=== PATIENT | female | born 1955 | race Caucasian/White ===

== ENCOUNTER 2022-06-11 19:38 | Outpatient (CLI) | payer MEDICARE, BC | END 2022-06-11 23:59 | disposition critical access hospital (66) | LOC: EMS 19:38 | DX: R55 Syncope and collapse (principal); R56.9 Unspecified convulsions; R11.2 Nausea with vomiting, unspecified | CPT/HCPCS: A0425; A0427 ==

== ENCOUNTER 2022-06-11 20:11 | Emergency (ER) | payer MEDICARE, BC ==
--- NOTE | 2022-06-11 20:12 | ED Physician Documentation ---
History of Present Illness - Stated complaint Stated Complaint: BRAYDON GROVER
--- NOTE | 2022-06-11 20:25 | ED Physician Documentation ---
PD HPI SYNCOPE - Stated complaint Stated Complaint: POSS SZ - Chief complaint Chief Complaint: Neuro - History obtained from History obtained from: Patient, EMS - Additional information Additional information: HPI is predominantly from patient with some contribution from EMS. Patient is brought in by ambulance for near syncope. 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 This evening, approximately 1 hour [employer], family member was just completing dressing change of the LUE surgical site when patient had sensation of feeling flushed, lightheaded. She was seated at the time, but the symptoms persisted and thus she felt she might feel better if she went outside. She stood up and walked outside and sat down in a chair. The next thing she recalls is that family including her were attending to her on the ground. She says she does not recall her family coming to help her. She was told by family that she was still seated and was not responding, and was exhibiting generalized twitching of her body.Patient was told by family that they then laid her down on the ground, and within 1 to 2 minutes, patient had completely returned to her baseline mental status which is awake, alert, oriented x3.EMS says that family relays that the twitching and unresponsiveness lasted approximately 30 to 60 seconds. Vital signs were normal for EMS on their arrival, throughout transfer to ER, and, on arrival, patient tells me that she feels well (currently asymptomatic on presentation to the ED). She was given 4 mg of Zofran IV by EMS for nausea. Shortly after patient had r eturned to her baseline level of consciousness, while she was on the ground, patient had onset of nausea with a single episode of emesis. Review of Systems Cardiac: reports: Reviewed and negative Respiratory: reports: Reviewed and negative GI: reports: Nausea, Vomiting (resolved with IV zofran (given by EMS)). denies: Abdominal Pain : denies: Incontinent PD PAST MEDICAL HISTORY - Past Medical History Past Medical History: Yes Derm: Other (carcinoma) - Allergies Allergies/Adverse Reactions: Allergies Allergy/AdvReac Type Severity Reaction Status Date / Time Penicillins Allergy Unknown Verified 06/11/22 20:26 - Living Situation Living Situation: reports: With family Living Arrangement: reports: At home PD ED PE NORMAL - Vitals Vital signs reviewed: Yes - General General: Alert and oriented X 3, No acute distress, Well developed/nourished - HEENT HEENT: Atraumatic, PERRL, EOMI, Moist mucous membranes - Neck Neck: Supple, no meningeal sign, No bony TTP - Cardiac Cardiac: RRR, No murmur, No gallop, No rub - Respiratory Respiratory: No respiratory distress, Clear bilaterally - Abdomen Abdomen: Soft, Non tender - Derm Derm: Normal color, Warm and dry - Neuro Neuro: Alert and oriented X 3, 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 Relevant findings are: Rate: Rate (enter#) (58) Rhythm: NSR [place]: Normal Intervals: Normal [place] QRS: Normal Ischemia: Normal ST segments - Labs Labs: Laboratory Tests 06/11/22 06/11/22 06/11/22 20:18 20:18 20:18 WBC 12.5 H RBC 4.26 Hgb 13.3 Hct 41.2 MCV 96.7 MCH 31.2 H MCHC 32.3 RDW 13.1 Plt Count 295 MPV 9.2 Neut # (Auto) 8.9 H Lymph # (Auto) 2.5 [place] # (Auto) 0.8 Eos # (Auto) 0.2 Baso # (Auto) 0.1 Absolute Nucleated RBC 0.00 Nucleated RBC % 0.0 Sodium 142 Potassium 3.7 Chloride 108 Carbon Dioxide 26 Anion Gap 8.0 BUN 13 Creatinine 0.8 Estimated GFR (MDRD) 72 L Glucose 109 H Calcium 8.9 Total Bilirubin 0.4 AST 18 ALT 15 Alkaline Phosphatase 61 Troponin I High Sens 6.3 Total Protein 6.5 L Albumin 3.6 Globulin 2.9 Albumin/Globulin Ratio 1.2 Lipase 39 - Rads (name of study) chest xray Relevant Findings:: Prelim report reviewed, EMP independent interpretation of test (I reviewed these images and my interpretation is no acute abnormality including no evidence of pneumonia, pneumothorax, cardiomegaly), See rad report PD Medical Decision Making - ED course Complexity details: reviewed results, re-evaluated patient, considered differential, d/w patient ED course: Syncopal episode at home, likely vasovagal given situation at time of event: patient was having LUE dressing changed by family and she says she was feeling uneasy thinking about the surgical site and the dressing change. She then describes typical hypotensive symptoms (see HPI), and family's description also is c/w syncope caused by hypotension, possibly some low-flow/anoxic seizure-like activity in the description. She rapidly returned to baseline and is asymptomatic during ED stay. No concerning/diagnostic findings on blood tests (normal hs-cTn, mildly elevated WBC). Normal EKG and CXR. She is again asymptomatic on reevaluation. Results d/w patient, suspected diagnosis discussed (vasovagal syncope, discussed using layperson terms), return precautions discussed Departure - Departure Disposition: 01 Home, Self Care Clinical Impression: Near syncope Condition: Good Instructions: ED Near Syncope Unkn Comments: There were no concerning or diagnostic findings on tonight's tests. As we discussed, I strongly suspect that you had a transient drop in your blood pressure, and inadequate blood flow to the brain from low blood pressure can cause a loss of consciousness as well as seizure like activity. Your blood pressures have been normal in the emergency department, so despite my suspicion, this is a possible explanation for your symptoms. At this time, there is no evidence of a dangerous condition, and further testing in the ER and/or in the hospital is not indicated. Discharge Date/Time: 06/11/22 23:08
[2022-06-11 20:29] LABS: BASOPHILS # (AUTO) 0.1 10^3/uL (0.0-0.1); BASOPHILS % (AUTO) 0.4 %; EOSINOPHILS # (AUTO) 0.2 10^3/uL (0.0-0.7); EOSINOPHILS % (AUTO) 1.6 %; HCT - HEMATOCRIT 41.2 % (37.0-47.0); HGB - HEMOGLOBIN 13.3 g/dL (12.0-16.0); LYMPHOCYTES # (AUTO) 2.5 10^3/uL (1.5-3.5); LYMPHOCYTES % (AUTO) 19.9 %; MEAN CORPUSCULAR HEMOGLOBIN 31.2 pg (27.0-31.0); MEAN CORPUSCULAR HGB CONC 32.3 g/dL (32.0-36.0); MEAN CORPUSCULAR VOLUME 96.7 fL (81.0-99.0); MEAN PLATELET VOLUME 9.2 fL (7.9-10.8); MONOCYTES # (AUTO) 0.8 10^3/uL (0.0-1.0); NEUTROPHILS # (AUTO) 8.9 10^3/uL (1.5-6.6); NEUTROPHILS % (AUTO) 71.5 %; PLT - PLATELET COUNT 295 10^3/uL (130-450); RED BLOOD COUNT 4.26 10^6/uL (4.20-5.40); RED CELL DISTRIBUTION WIDTH 13.1 % (12.0-15.0); WHITE BLOOD COUNT 12.5 x10^3/uL (4.8-10.8)
[2022-06-11 20:40] LABS: ALBUMIN 3.6 g/dL (3.2-5.5); ALBUMIN/GLOBULIN RATIO 1.2 (1.0-2.2); BILIRUBIN,TOTAL 0.4 mg/dL (0.2-1.0); CALCIUM 8.9 mg/dL (8.5-10.3); CREATININE 0.8 mg/dL (0.4-1.0); POTASSIUM 3.7 mmol/L (3.5-5.0); TOTAL PROTEIN 6.5 g/dL (6.7-8.2)
--- NOTE | 2022-06-11 20:53 | XRAY Report ---
PROCEDURE: Chest 1 View X-Ray INDICATIONS: near-syncope TECHNIQUE: One view of the chest was acquired. COMPARISON: Chest x-ray 07/14/2021. FINDINGS: Surgical changes and devices: None. Lungs and pleura: No pleural effusions or pneumothorax. Lungs are clear. Mediastinum: Mediastinal contours appear normal. Heart size is normal. Bones and chest wall: No suspicious bony lesions. Overlying soft tissues appear unremarkable. IMPRESSION: 1. No acute cardiopulmonary disease. Reviewed by: Zachary Petersen MD on 06/11/2022 8:51 PM PDT Approved by: Zachary Petersen MD on 06/11/2022 8:51 PM PDT Station ID: [id number]
[2022-06-11 23:08] VITALS: BP 114/63
== END 2022-06-11 23:08 | disposition home or self-care (01) ==
LOC: EDUNIT# → ED 20:11
DX: R55 Syncope and collapse (principal)
CPT/HCPCS: 36415; 80053; 83690; 84484; 85025; 93005; 99283; 99284